=== PATIENT | female | born 1940 | race Caucasian/White ===

== ENCOUNTER 2019-04-27 16:13 | Emergency (ER) | payer MEDICARE, SELFPAY ==
[2019-04-27 16:14] VITALS: BP 127/112; PULSE 110; RESP 18; TEMP 36.2; O2SAT 98; BMI 24.8
--- NOTE | 2019-04-27 16:34 | CT_ITS ---
STUDY: CT BRAIN WITHOUT CONTRAST REASON FOR EXAM: Female, 78 years old. FALLS. PRIOR TIA RADIATION DOSAGE (If Supplied By Facility): CTDIvol = ( 44.99 ) mGy, DLP = ( 796.11 ) mGycm TECHNIQUE: Transaxial CT imaging of the brain was performed without administration of intravenous contrast material. Individualized dose optimization techniques were used for this CT. COMPARISON: No relevant priors. FINDINGS: Normal soft tissue structures. 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 There is mild cerebral atrophy with widening of the extra-axial spaces and ventricular dilatation. There are areas of decreased attenuation within the white matter tracts of the supratentorial brain, consistent with microvascular disease changes. Normal basal ganglia and thalami. Normal brainstem. Normal cerebellum. There is no intracranial hemorrhage. There are no findings of an acute ischemic infarction. Normal visualized paranasal sinuses. CT/Brain/Head without Contrast IMPRESSION: Chronic involutional changes of the brain. Electronically Signed: Fredrick Young MD at 17:21 EST Tel , Service support ,
--- NOTE | 2019-04-27 16:35 | EKG12_ITS ---
Test Reason : DIZZY Blood Pressure : / mmHG Vent. Rate : 109 BPM Atrial Rate : 109 BPM P-R Int : 200 ms QRS Dur : 134 ms QT Int : 368 ms P-R-T Axes : -65 -53 127 degrees QTc Int : 495 ms Atrial Flutter Left axis deviation Left bundle branch block Abnormal ECG Confirmed by SHERYL WARD, RANI ([id number]), make up editor DANIKA AGUILAR ([id number]) on 05/01/2019 8:55:05 AM Referred By: LIA Confirmed By:RANI SAUCEDO MD
--- NOTE | 2019-04-27 16:37 | ED.VIS.GEN ---
History of Present Illness Chief Complaint: Fall Narrative: Patient presents with generalized weakness and multiple falls over the past few weeks the last fall was last week and she did injure her head she has a periorbital contusion on the left. Today she fell but has no injuries. She ambulates with a walker or cane and she tells me she does not always use them. She has no fever chills cough congestion or myalgias she has no dysuria or hematuria she has no abdominal pain. There is no history of chest pain or shortness of breath. Past Medical History - Allergies and Home Meds Allergies/Adverse Reactions: Allergies No Known Allergies Allergy (Verified 04/27/19 16:14) Primary Care Physician: Gallito Mendez DO [Primary Care Provider] - 3-5 Days Past Medical History: None Smoking Status: Never smoker Review of Systems All systems negative except as indicated General: Reports: - - Generalized weakness. Denies: Fever ENT: Denies: Rhinorrhea, Sore throat Cardiovascular: Denies: Chest pain Respiratory: Denies: Dyspnea, Cough Gastrointestinal: Denies: Abdominal pain, Nausea, Vomiting Genitourinary: Denies: Dysuria Skin: Denies: Rash Neurological: Reports: - - No focal weakness. Denies: Headache Psych: Denies: Depression Endocrine: Denies: Polyuria Hematologic: Denies: Easy bruising Physical Exam Vital Signs/Narrative: Vital Signs Temp Pulse Resp BP Pulse Ox 04/27/19 16:14 97.2 F L 110 H 18 127/112 H 98 General: Well nourished. Negative for: Acute Distress Head: - - There is a periorbital contusion appears old Eyes: Perrl, EOMI ENT: Dry mucous membranes Neck: Supple Cardiovascular: Regular rate, Regular rhythm, No murmurs Respiratory: No distress, CTA bilaterally Abdomen: Soft, Nontender Back: Nontender, Normal Inspection Extremities: Nontender Skin: Normal color Neurological: Alert, Oriented x3, Normal Strength, Normal Sensation Psychological: Normal affect Diagnostic/Tx/Re-eval Chest X-Ray - ED: 1 View, Read by ED Physician, Read by Radiologist, Normal, Heart, Lungs, Mediastinum - Rhythm Strip Rhythm Strip: Sinus Rhythm Rate: 109 Ectopy: None - EKG Initial EKG Interpretation: - - Normal sinus rhythm with a rate of 109. Left axis deviation. Nonspecific intraventricular conduction delay. Nonspecific ST changes throughout. Interpreted by emergency doctor - Medical Decision Making Patient is found to be hypokalemic, potassium will be replaced. I will add a magnesium. Otherwise she wants to be discharged home she will be careful about ambulating. I believe this is reasonable I discussed with family who will take her home. ED Disposition - Plan for ED Patient: Disposition: Home or Assisted Living Diagnosis: Hypokalemia, Fall Instructions: Hypokalemia, FALL, Mechanical Referrals: Gallito Mendez DO [Primary Care Provider] - 3-5 Days
--- NOTE | 2019-04-27 16:45 | RAD_ITS ---
STUDY: X-RAY CHEST REASON FOR EXAM: Female, 78 years old. weakness, falls TECHNIQUE: Single AP portable view of the chest. COMPARISON: 05/13/2015 FINDINGS: The lungs are clear and expanded. There is no demonstrated pleural abnormality. Normal size heart. Normal mediastinum and deya. Normal visualized pulmonary arteries. Normal visualized aortic arch and descending thoracic aorta. Normal visualized thoracic spine. Normal visualized ribs, clavicles, and shoulders. There is no demonstrated abnormality of the visualized soft tissue structures of the upper abdomen. RAD/Chest 1 View (Portable) IMPRESSION: Normal x-ray examination of the chest. Electronically Signed: Fredrick Young MD at 17:03 EST Tel , Service support ,
[2019-04-27 16:52] VITALS: BP 134/89; PULSE 108; RESP 16; O2SAT 99
[2019-04-27 16:53] LABS: Absolute Lymphocyte Count 0.94 X10^3/uL (0.83-4.51); Absolute Neutrophil Count 5.5 X10^3/uL (2.0-7.7); Basophil# 0.07 X10^3/uL; Eosinophil# 0.04 X10^3/uL; Eosinophils% 0.6 % (0-5); Hematocrit 39.6 % (37-47); Hemoglobin 13.2 g/dL (12.0-15.0); Lymphocyte # 0.94 X10^3/ul (4.0); Lymphocyte % 13.4 % (19-41); Mean Corp Hgb Conc 33.3 g/dL (32-36); Mean Corpuscular Hgb 28.1 pg (27.0-32.0); Mean Corpuscular Volume 84.4 fL (81-99); Mean Platelet Vol. 9.9 fl (6.2-12.0); Monocyte# 0.38 X10^3/uL; Monocyte% 5.4 % (0-10); NRBC Flagged by Analyzer 0 % (0-5); Neutrophil # 5.51 X10^3/uL (2.7-7.7); Neutrophil % 78.5 % (47-70); Platelet Count 191 K/mm3 (150-450); RBC Distribution Width CV 13.4 % (11.6-14.6); RBC Distribution Width SD 41.4 fl (35.1-43.9); Red Blood Count 4.69 M/mm3 (4.2-5.4)
[2019-04-27 17:20] LABS: ALB/GLOB Ratio 0.9 RATIO (0.9-2.4); AST(SGOT) 22 U/L (15-37); Alanine Aminotransfer ALT/SGPT 14 U/L (13-56); Albumin, Serum 3.1 g/dL (3.2-5.0); Alkaline Phosphatase 72 U/L (45-117); Anion Gap 6 (5-15); BUN 29 mg/dL (7-18); BUN/Creat Ratio 18.1 RATIO (10-20); Calcium,Total 9.2 mg/dL (8.5-10.1); Chloride 99 mmol/L (98-107); EST Glomerular Filtration Rate 33 mL/min (>60); Est Glom Filt Rate - Afr Amer 40 mL/min (>60); Estimated Creatinine Clearance 26.69 ml/min; Globulin 3.6 g/dL (2.2-4.2); Glucose 99 mg/dL (74-106); Potassium 2.7 mmol/L (3.5-5.1); Protein, Total 6.7 g/dL (6.4-8.2); Sodium Level 135 mmol/L (136-145)
[2019-04-27 18:11] LABS: Magnesium 1.4 mg/dL (1.6-2.6)
[2019-04-27 19:17] VITALS: BP 117/84; PULSE 104; RESP 16
[2019-04-27 21:32] VITALS: BP 142/84; PULSE 105; RESP 16; O2SAT 98
[2019-04-27 21:35] VITALS: BP 142/84; PULSE 105; RESP 18; O2SAT 98
== END 2019-04-27 21:40 | disposition home or self-care (01) ==
PROVIDERS: Emergency Provider Emergency Medicine; PCP Student in an Organized Health Care Education/Training Program
DX: E87.6 Hypokalemia (principal); R29.6 Repeated falls
CPT/HCPCS: 70450; 71045; 80053; 83735; 84484; 85025; 93005; 96361; 96365; 96366; 99285; J7040; A4216; J3475